=== PATIENT | male | born 1960 | race Caucasian/White ===

== ENCOUNTER → 2016-08-28 | Day surgery (SDC) | payer BC ==
[~2016-08-28] MED LIST: CARDURA8 MG PO; CIPRO500 MG PO; HYDROXYZINE HCL10 MG PO; IBUPROFEN400 MG PO; LOPRESSOR50 MG PO; LOTREL 10-40 M1 EACH PO; MOBIC15 MG PO; NEURONTIN300 MG PO; PERCOCET 10-321 EACH PO; PHENERGAN25 M1 PO; ULTRAM50 MG PO; VALIUM10 MG PO; ZOFRAN4 MG PO
== END | disposition home or self-care (01) ==
LOC: SDC 06:22
DX: N13.2 Hydronephrosis with renal and ureteral calculous obstruction (principal); N42.0 Calculus of prostate; I10 Essential (primary) hypertension; J44.9 Chronic obstructive pulmonary disease, unspecified; J40 Bronchitis, not specified as acute or chronic; M19.90 Unspecified osteoarthritis, unspecified site; F17.210 Nicotine dependence, cigarettes, uncomplicated; Z79.1 Long term (current) use of non-steroidal anti-inflammatories (NSAID); Z79.899 Other long term (current) drug therapy; Z98.890 Other specified postprocedural states
CPT/HCPCS: C1758; C2617; J2370; J2704; Q9967